=== PATIENT | female | born 1950 | race Caucasian/White ===

== ENCOUNTER 2016-03-15 18:28 | Emergency (ER) | payer MEDICARE, OTHER ==
[2016-03-15 20:10] LABS: #Basophils 0.2 thou/uL (0.0-0.2); #Eosinphils 0.1 thou/uL (0.0-0.7); #Monocytes 0.9 thou/uL (0.11-0.59); %Basophils 1.1 % (0.0-1.0); %Eosinophils 0.5 % (0.0-10.0); %Lymphocytes 6.1 % (21.0-51.0); %Monocytes 5.4 % (0.0-10.0); Hematocrit 38.8 % (36.0-47.0); Mean Platelet Volume 9.6 fL (7.4-10.4); Red Blood Cell (RBC) Count 4.09 mill/uL (4.20-5.40); White Blood Cell (WBC) Count 16.1 thou/uL (4.8-10.8)
[2016-03-15 20:19] LABS: ALT (SGPT) 14 U/L (0-55); AST (SGOT) 17 U/L (5-34); Alkaline Phosphatase 62 U/L (40-150); Anion Gap 14 mmol/L (10-20); BUN (Urea Nitrogen) 38 mg/dL (9.8-20.1); Bilirubin, Total 0.4 mg/dL (0.2-1.2); Calc. Creatinine Clearance 0 mL/min (70-130); Calcium 8.6 mg/dL (7.8-10.44); Carbon Dioxide 25 mmol/L (23-31); Chloride 97 mmol/L (98-107); Estimated GFR-MDRD 18; Globulin 3.3 g/dL (2.4-3.5); Protein, Total 7.1 g/dL (5.8-8.1)
--- NOTE | 2016-03-15 21:26 | RAD ---
SINGLE VIEW ABDOMEN 03/15/16 CLINICAL HISTORY: Constipation. FINDINGS: There is distention of the stool filled colon. There is air within bowel of the pelvis which is nond istended. Upper and left lateral aspect of abdomen not included. IMPRESSION: Distended stool filled colon. 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 There is nondistended air filled bowel of the pelvis. POS: [facility]
--- NOTE | 2016-03-15 21:53 | RAD ---
FRONTAL VIEW CHEST 03/15/16 COMPARISON: 03/13/09 INDICATION: Pain. FINDINGS: The chest is grossly stable to prior exam. There is mild interstitial prominence of the lower lung z ones. The cardiac silhouette is stable in size. IMPRESSION: No focal consolidation. POS: [facility]
--- NOTE | 2016-03-15 21:56 | RAD ---
SINGLE VIEW ABDOMEN 03/15/16 COMPARISON: Earlier same day. CLINICAL HISTORY: Constipation. FINDINGS: Redemonstration of dilated stool filled colon as was described in the radiograph from earlier today. There is presumed partially air filled gastric bubble underlying left hemidiaphragm. Imaged lung ba ses are grossly clear. IMPRESSION: Redemonstration of stool filled dilated colon indicating [place]'s syndrome. Correlate clinically. POS: [facility]
[2016-03-15] MEDS ORDERED: Sodium Chloride 0.9% 1,000 ML ONE (22:26)
--- NOTE | 2016-03-15 23:06 | CT ---
NONCONTRAST ABDOMEN AND PELVIC CT 03/15/16 CLINICAL HISTORY: Constipation. FINDINGS: There is prominent dilatation of the stool filled colon with extensive dilatation spanning the level of the cecum through the mid left descending colon. There is mild to moderate distention of the rem aining left hemicolon and rectosigmoid colon. No evidence of small bowel obstruction. There is impac derik prominent fecal material with surrounding peripherally located submural air density likely repre senting air interposed between wall and stool rather than pneumatosis coli. Due to the noncontrast t echnique, the solid abdominal organs, lymph nodes and vasculature are limited in assessment. There i s scattered vascular disease. No significant consolidation at the lung bases. No disseminated free a ir or portal venous gas. There is a small hiatal hernia. Fat containing hernia of the lower left loco tral pelvic wall noted. Scattered osseous degenerative change. IMPRESSION: Extensive, diffuse dilatation of the stool filled colon as above. Findings favor an Jeff's syndro me. No associated small bowel obstruction. The unopacified small bowel is grossly unremarkable. No free air. No significant ascites or portal venous gas. POS: [facility]
[2016-03-15] MEDS ORDERED: Piperacillin/Tazobactam 3.375 GM VIAL ONE (23:24)
[2016-03-15] MEDS ORDERED: Sodium Chloride 0.9% 100 ML ONE (23:25)
[2016-03-15 23:28] LABS: Lactic Acid - Sepsis 1.1 mmol/L (0.5-2.2)
[2016-03-16] MEDS ORDERED: Sodium Chloride 0.9% 1,000 ML ONE (04:22)
[2016-03-16 05:20] LABS: Blood, Urine Small (Negative); Glucose, Urine (Dipstick) Negative (Negative); Ketone, Urine Trace mg/dL (Negative); Nitrite Negative (Negative); Protein, Urine (Dipstick) Negative (Neg-Trace); Urobilinogen 0.2 mg/dL (0.2-1.0)
[2016-03-16 05:23] LABS: Bilirubin Negative (Negative)
[2016-03-16 05:26] LABS: Squamous Epithelial 21-50 HPF (0-3)
[2016-03-16 05:27] LABS: Bacteria/HPF 1+ HPF (None Seen)
[2016-03-16] MEDS ORDERED: Piperacillin/Tazobactam 2.25 GM in Sodium Chloride 0.9% 100 ML IVPB SCH (06:00)
[2016-03-16] MEDS ORDERED: Sodium Chloride 0.9% 0 ML ONE (06:03)
[2016-03-16 06:20] LABS: #Basophils 0.1 thou/uL (0.0-0.2); #Eosinphils 0.1 thou/uL (0.0-0.7); #Monocytes 0.9 thou/uL (0.11-0.59); %Basophils 0.9 % (0.0-1.0); %Lymphocytes 6.9 % (21.0-51.0); %Monocytes 6.1 % (0.0-10.0); Hematocrit 35.1 % (36.0-47.0); Mean Platelet Volume 9.8 fL (7.4-10.4); Red Blood Cell (RBC) Count 3.76 mill/uL (4.20-5.40); White Blood Cell (WBC) Count 14.1 thou/uL (4.8-10.8)
[2016-03-16 06:34] LABS: ALT (SGPT) 14 U/L (0-55); AST (SGOT) 16 U/L (5-34); Alkaline Phosphatase 54 U/L (40-150); Anion Gap 15 mmol/L (10-20); BUN (Urea Nitrogen) 36 mg/dL (9.8-20.1); Bilirubin, Total 0.4 mg/dL (0.2-1.2); Calc. Creatinine Clearance 0 mL/min (70-130); Calcium 7.7 mg/dL (7.8-10.44); Carbon Dioxide 21 mmol/L (23-31); Chloride 101 mmol/L (98-107); Estimated GFR-MDRD 23; Globulin 2.8 g/dL (2.4-3.5)
--- NOTE | 2016-03-16 12:02 | PICIS ---
[facility] EMERGENCY RECORD TRIAGE (MonMar 15, 2016 18:37 EPIE) TRIAGE NOTES: Pt reports pt was having constipation one week ago. Pt has had medication and 2 enemas with no relief. Last BM was one week ago. (MonMar 15, 2016 18:37 EPIE) PATIENT: NAME: Jesusita Malhotra, AGE: 66, GENDER: female, : Mon1950, TIME OF GREET: MonMar 15, 2016 18:28, PREFERRED LANGUAGE: Malaysian, ETHNICITY: Not or , ECODE BILLING MAP: [facility], SSN: [id number], Zip Code: [address], KG WEIGHT: 66.22, PHONE: , , , PERSON ID: [id number], PCP: Carlos Kessler, /[place]. (MonMar 15, 2016 18:37 EPIE) COMPLAINT: Constipation. (MonMar 15, 2016 18:37 EPIE) ADMISSION: URGENCY: 3 Urgent, ADMISSION SOURCE: Home, TRANSPORT: CAR, BED: TRIAGE. (MonMar 15, 2016 18:37 EPIE) TRIAGE SCREENING: Patient denies suicidal ideation, Patient denies presence of domestic violence. (18:42 EPIE) TREATMENTS IN PROGRESS: Treatments given Prehospital: none. (18:42 EPIE) PROVIDERS: TRIAGE NURSE: Cara Plascencia RN. (MonMar 15, 2016 18:37 EPIE) VITAL SIGNS: BP 132/63, Pulse 93, Resp 20, (Non-Labored), Temp 98.3, (Oral), Pain 8, O2 Sat 95, on Room Air, Time 03/15/2016 18:35. (18:35 EPIE) KNOWN ALLERGIES Latex, Natural Rubber CURRENT MEDICATIONS metFORMIN: TABLET : Strength - 500 mg : ORAL Patient Dose: 500 mg Oral 2 times a day. (18:38 EPIE) Unknown (18:39 EPIE) alendronate: TABLET : Strength - 70 mg : ORAL Patient Dose: 1 tab(s) Oral once a week. (MonMar 16, 2016 04:51 [facility]) Coreg: TABLET : Strength - 12.5 mg : ORAL Patient Dose: 6.25 mg Oral 2 times a day. (MonMar 16, 2016 04:51 [facility]) doxepin: CAPSULE : Strength - 100 mg : ORAL Patient Dose: 1 tab(s) Oral once a day (at bedtime). (MonMar 16, 2016 04:52 [facility]) hydrochlorothiazide: CAPSULE : Strength - 12.5 mg : ORAL Patient Dose: 1 tab(s) Oral once a day (in the morning). (MonMar 16, 2016 04:53 [facility]) levothyroxine: TABLET : Strength - 125 mcg : ORAL &a-1R&a+25V*p+0X*u6919I*c202B*c15G*c2P*p-0X&a-25V&a+1R Name: Jesusita Malhotra : 1950 F66 MedRec: [id number] AcctNum: [id number] Prepared: MonMar 16, 2016 11:42 by Interface Page 1 of 19 pMD [facility] EMERGENCY RECORD Patient Dose: 1 tab(s) Oral once a day (in the morning). (MonMar 16, 2016 04:53 [facility]) lovastatin: TABLET : Strength - 20 mg : ORAL Patient Dose: 1 tab(s) Oral once a day (at bedtime). (MonMar 16, 2016 04:55 [facility]) SMZ-TMP DS: TABLET : Strength - 800 mg-160 mg : ORAL Patient Dose: 1 tab(s) Oral 2 times a day.filled 03/01/16, qty 28 tabs. (MonMar 16, 2016 04:56 [facility]) Fish Oil-Vit D3: CAPSULE : Strength - 300 mg-1,000 mg-1,000 unit : ORAL Patient Dose: 1 cap(s) Oral once a day.1200 mg Fish oil conc. w/2000 iu fo Vitamin D3. (MonMar 16, 2016 04:58 [facility]) Vitamin D3: TABLET : Strength - 5,000 unit : ORAL Patient Dose: 1 tab(s) Oral once a day. (MonMar 16, 2016 04:59 [facility]) omeprazole: CAPSULE,DELAYED RELEASE (ENTERIC COATED) : Strength - 40 mg : ORAL Patient Dose: 1 tab(s) Oral once a day. (MonMar 16, 2016 05:03 [facility]) VITAL SIGNS VITAL SIGNS: BP: 132/63, Pulse: 93, Resp: 20 (Non-Labored), Temp: 98.3 (Oral), Pain: 8, O2 sat: 95 on Room Air, Time: 03/15/2016 18:35. (18:35 EPIE) BP: 140/56, Pulse: 85, Resp: 18, O2 sat: 95 on Room Air, Time: 03/15/2016 23:15. (23:15 [facility]) BP: 134/39, Pulse: 87, Resp: 20, Pain: 8, O2 sat: 96 on Room Air, Time: 03/15/2016 19:50. (19:50 [facility]) BP: 137/56, Pulse: 83, Resp: 20, O2 sat: 95 on Room Air, Time: 03/15/2016 20:15. (20:15 [facility]) BP: 125/68, Pulse: 84, Resp: 20, Pain: 8, O2 sat: 97 on Room Air, Time: 03/15/2016 21:45. (21:45 [facility]) BP: 148/56, Pulse: 84, Resp: 20, O2 sat: 97 on Room Air, Time: 03/15/2016 22:15. (22:15 [facility]) BP: 119/38, Pulse: 83, Resp: 18, O2 sat: 100 on 4L Oxygen, Time: 03/15/2016 22:50. (22:50 [facility]) BP: 109/53, Pulse: 89, Resp: 18, O2 sat: 94 on Room Air, Time: 03/15/2016 23:30. (23:30 [facility]) BP: 131/60, Pulse: 87, Resp: 18, Temp: 98.6 (Oral), O2 sat: 94 on Room Air, Time: 03/16/2016 00:30. (MonMar 16, 2016 00:30 [facility]) Pain: 8, Time: 03/15/2016 23:20. (23:20 [facility]) BP: 132/60, Pulse: 87, Resp: 18, O2 sat: 94 on Room Air, Time: 03/16/2016 01:00. (MonMar 16, 2016 01:00 [facility]) BP: 142/71, Pulse: 88, Resp: 16, O2 sat: 95 on Room Air, Time: 03/16/2016 02:00. (MonMar 16, 2016 02:00 [facility]) BP: 141/53, Pulse: 93, Resp: 18, O2 sat: 93 on Room Air, Time: 03/16/2016 06:00. (MonMar 16, 2016 06:00 [facility]) &a-1R&a+25V*p+0X*r0713T*c202B*c15G*c2P*p-0X&a-25V&a+1R Name: Jesusita Malhotra : 1950 F66 MedRec: [id number] AcctNum: [id number] Prepared: MonMar 16, 2016 11:42 by Interface Page 2 of 19 pMD [facility] EMERGENCY RECORD BP: 130/71, Pulse: 86, Resp: 16, O2 sat: 94 on Room Air, Time: 03/16/2016 04:00. (MonMar 16, 2016 04:00 [facility]) BP: 125/69, Pulse: 94, Resp: 18 (Non-Labored), O2 sat: 93 on Room Air, Time: 03/16/2016 08:00. (MonMar 16, 2016 08:00 EPIE) Pulse: 98, Resp: 20 (Non-Labored), Temp: 98.4 (Oral), Pain: 8, O2 sat: 94 on Room Air, Time: 03/16/2016 10:02. (MonMar 16, 2016 10:02 EPIE) BP: 132/58, Time: 03/16/2016 10:30. (MonMar 16, 2016 10:30 EPIE) NURSING ASSESSMENT: ABDOMEN (18:44 EPIE) CONSTITUTIONAL: Patient arrives ambulatory, Gait steady, History obtained from patient, Patient appears comfortable, Patient cooperative, Patient alert, Oriented to person, place and time, Skin warm, Skin dry, Skin normal in color, Mucous membranes pink, Mucous membranes moist, Patient is well-groomed, Pt reports pt was having constipation one week ago. Pt has had medication and 2 enemas with no relief. Last BM was one week ago. PAIN: reports stretching feeling to diffuse abd, Onset of pain 03/08/2016, on a scale 0-10 patient rates pain as 8, Pain exacerbated by nothing, Nothing has been tried to alleviate the pain. ABDOMEN: Abdomen assessment findings include abdomen symmetrical, Abdomen, full, tender, no associated nausea, no associated vomiting, no associated diarrhea, Associated with constipation, Date of last bowel movement: 03/08/2016. LMP: Last menstrual period not applicable due to menopause. GENITOURINARY FEMALE: no associated urinary complaints. NURSING ASSESSMENT: ED HOLDING RECORD (MonMar 16, 2016 03:00 [facility]) ADMISSION TIME: Patient was admitted at 03/15/2016 22:35, Notes: TRANSFER SET UP AND READY TO GO. TRANSFER CENTER THEN CALLED BACK ASKING IF WE COULD HOLD PT UNTIL MORNING DUE TO OVERFLOW IN ED AT [facility]. NEURO/SENSORY: Neuro/Sensory assessment findings include patient alert and oriented to person, place and time, Pupils equally round and reactive to light, Speech normal, Skin warm, Skin dry, Skin normal in color, Capillary refill less than 2 seconds, Nail beds pink, no edema. RESPIRATORY/AIRWAY CLEARANCE: Respiratory/airway clearance assessment findings include chest expansion symmetrical, Respiratory effort easy, Respirations regular, Conversing normally, no signs of distress, Breath sounds clear. FLUID/NUTRITION/ELIMINATION: Fluid/Nutrition/Elimination assessment findings include mucous membranes pink, Mucous membranes moist, Abdomen, tender, Notes: C/O CRAMPING TO RLQ. PSYCH/SOCIAL: Psych/social assessment findings include patient calm, Answers questions readily, Patient speaks Malaysian. PAIN: cramping pain, RLQ, constant, on a scale 0-10 patient rates pain as 8. &a-1R&a+25V*p+0X*q8038P*c202B*c15G*c2P*p-0X&a-25V&a+1R Name: Jesusita Malhotra : 1950 F66 MedRec: [id number] AcctNum: [id number] Prepared: MonMar 16, 2016 11:42 by Interface Page 3 of 19 pMD [facility] EMERGENCY RECORD SAFETY SCREEN: Fall risk assessment findings include history of falls (5), Total score: 5, Patient at risk for falls. IV: IV site to the right antecubital inspected, no redness noted, no swelling noted, no drainage noted. NURSING ASSESSMENT: SKIN (22:18 [facility]) SKIN: Skin assessment findings include skin warm, Skin dry, Skin normal in color, Inspection findings include: No pressure ulcer to the shoulder, Inspection findings include no pressure ulcer to the elbow, Inspection findings include no pressure ulcers to the hip, Inspection findings include no pressure ulcer to the sacrum, Inspection findings include no pressure ulcer to the heel, Inspection findings include no pressure ulcer, Inspection findings include no pressure ulcer, Notes: MULTIPLE SCABS TO BILATERAL ARMS, CHEST, AND NECK FROM NEURODERMATITIS. SCRATCH TO MID LEFT BACK FROM PREVIOUS FALL. NURSING PROCEDURE: BEDSIDE SIRS TESTING (22:13 [facility]) SCORES: Heart Rate 55-109 (0), Temp range 96.8-101.1 (0), respiratory rate 12-24 (0), Latest WBC 15-19.9 (1), Mental Status altered: no (0), Total SIRS Score 1. NURSING PROCEDURE: COMMUNICATIONS COMMUNICATIONS: Admissions department, notified at 2216, Person contacted Kaity, in transfer center, Transfer centered contacted per TERRY to start transfer process to [facility] Dx: Renal Failure, Constipation, Rectal Dilation Accepting MD: Wojciech [facility] Admin: Vanessa. (22:15 [facility]) Admissions department, notified at 2235, CONTACTED BY KAITY (@ TRANSFER CENTER). VANESSA GARCÍA ([facility] ADMIN) REQUESTING WE HOLD PT IN ED UNTIL MORNING DUE TO 11 HOLDS ALREADY AT [facility] ER. PT TO BE TRANSFERED IN THE AM. (22:35 [facility]) NURSING PROCEDURE: INTAKE AND OUTPUT INTAKE AND OUTPUT: IV intake(ml): 1100, Total Intake (ml): 1100ml, Urine output(ml): 15, Total Output (ml): 15ml, Grand Total: Intake is greater than output by 1085mls. (MonMar 16, 2016 05:18 [facility]) IV intake(ml): 200, Total Intake (ml): 200ml, Urine output(ml): 200, Total Output (ml): 200ml, Grand Total: Output is equal to intake. (MonMar 16, 2016 09:47 EPIE) NURSING PROCEDURE: IV PATIENT IDENITIFIER: Patient actively involved in identification process, Patient's identity verified by patient stating name, Patient's identity verified by patient stating date, Patient's identity verified by hospital ID bracelet. (19:45 [facility]) &a-1R&a+25V*p+0X*o7838A*c202B*c15G*c2P*p-0X&a-25V&a+1R Name: Jesusita Malhotra : 1950 F66 MedRec: [id number] AcctNum: [id number] Prepared: MonMar 16, 2016 11:42 by Interface Page 4 of 19 pMD [facility] EMERGENCY RECORD IV SITE 1: IV established, to the right antecubital, using a 20 gauge catheter, in one attempt, IV site prepped with Chloroprep, Saline lock established, Flushed with normal saline (mls): 10mLs, Labs drawn at time of placement, labeled in the presence of the patient and sent to lab, Notes: IV site C/D/I. no pain, redness, or swelling. IV start kit/extension tubing used. (19:45 [facility]) NOTES: Notes: 1ST SET OF BLOOD CULTURES DRAWN FROM IV SITE. STOPPED IV FLUIDS. 10ML BLOOD WASTED. 20ML PULLED FOR CULTURES. FLUIDS RESUMED. (22:55 [facility]) Notes: CBC & CMP DRAWN FROM IV SITE. STOPPED IV FLUIDS. 10ML BLOOD WASTED. 6ML PULLED FOR TESTING. FLUIDS RESUMED. (MonMar 16, 2016 06:00 [facility]) SAFETY: Side rails up, Cart/Stretcher in lowest position, Call light within reach, Hospital ID band on. (19:45 [facility]) NURSING PROCEDURE: LAB DRAW (23:05 [facility]) PATIENT IDENTIFIER: Patient actively involved in identification process, Patient's identity verified by patient stating name, Patient's identity verified by patient stating date, Patient's identity verified by hospital ID kati. LAB DRAW: Lab draw indicated for obtaining specimens for evaluation, Lab draw indicated for 2nd set of Blood Cultures, Initial lab draw performed, by venipuncture, from right hand, in one attempt, Blood cultures labeled in the presence of the patient and sent to lab. FOLLOW-UP: After procedure, dressing applied to site, After procedure, no swelling at site, After procedure, no active bleeding from site. NURSING PROCEDURE: NURSE NOTES NURSES NOTES: Notes: PT ASKED FOR DRINK OF WATER. INFORMED PT SHE WAS TO HAVE NOTHING BY MOUTH UNTIL ALL RESULTS WERE RECEIVED AND CLEARED BY MD. PT VERBALIZES UNDERSTANDING. (19:50 [facility]) Notes: PT C/O OF ABDOMINAL CRAMPING AND REQUESTING TO GO TO RESTROOM. PT ASSISTED OUT OF BED TO BATHROOM. (22:10 [facility]) Notes: PT RECONNECTED TO MONITOR AND IV FLUIDS. PT STATES SHE HAD A SMALL BOWEL MOVEMENT WHILE IN THE RESTROOM BUT "NOT A GOOD ONE." PT REQUESTING WATER AT THIS TIME. (22:20 [facility]) Notes: DISCUSSED NPO STATUS AND PAIN MANAGEMENT WITH MD. STATES HAVING PATIENT WALK AROUND SHOULD HELP RELIEVE THE PAIN AND THAT SHE CAN HAVE ANYTHING SHE WANTS BY MOUTH. GLASS OF ICE WATER GIVEN TO PATIENT. OFFERED TO WALK PT AROUND TO HELP WITH PAIN, PT STATED "THATS OKAY, I'M TIRED AND JUST WANT TO SLEEP". OFFERED TO GET PATIENT A LARGER, MORE COMFORTABLE BED FROM THE ACUTE FLOOR, PT STATES "THIS ONE IS FINE." PT APPEARS COMFORTABLE AND IN NAD. NO QUESTIONS OR CONCERNS AT THIS TIME. (22:30 [facility]) Notes: PT SOUND ASLEEP IN BED. IV ANTIBIOTIC INFUSION COMPLETED AND DISCONNECTED FROM PT. MAINTENANCE IV FLUIDS CONTINUE TO INFUSE AT 100ML/HR. RR EVEN AND UNLABORED. SKIN WARM AND DRY TO TOUCH. VSS. NAD. (MonMar 16, 2016 00:00 [facility]) &a-1R&a+25V*p+0X*m0124G*c202B*c15G*c2P*p-0X&a-25V&a+1R Name: Jseusita Malhotra : 1950 F66 MedRec: [id number] AcctNum: [id number] Prepared: MonMar 16, 2016 11:42 by Interface Page 5 of 19 pMD [facility] EMERGENCY RECORD Notes: PATIENT APPEARS IF SHE IS NOT COMFORTABLE ON ER BED. OFFERED LARGER BED TO PT FOR A SECOND TIME. PT HESITANT, STATES "THAT WOULD BE OK, BUT YOU DON'T HAVE TO." OBTAINED BED FROM ACUTE FLOOR AND BROUGHT TO PTS ROOM. PT STANDS WITH STEADY GAIT WHILE BEDS ARE SWITCHED. OFFERED TO TAKE PT TO RESTROOM BUT PT EXPRESSED SHE DID NOT NEED TO GO AT THIS TIME. PT INSTRUCTED ON HOW TO USE CONTROLS ON HOSPITAL BED. ALSO INFORMED PT SHE MAY HAVE ANOTHER BREATHING TREATMENT ANYTIME AFTER 3AM IF NEEDED AND THAT HER SECOND DOSE OF ANTIBIOTICS WOULD BE AT 0600. PT VERBALIZED UNDERSTANDING. CALL SOUZA HOOKED TO SIDE RAIL. PT REPORTS FEELING MUCH MORE COMFORTABLE. REPORTS NO CHANGE IN RLQ CRAMPING. VSS. NAD. LIGHTS TURNED OFF AND EXTRA PILLOW GIVEN FOR COMFORT. (MonMar 16, 2016 00:40 [facility]) Notes: PT ASLEEP IN BED. Q2H VS PER MD ORDER. NAD. RR EVEN AND UNLABORED. (MonMar 16, 2016 01:30 [facility]) Notes: PT ASLEEP IN NAD. RR EVEN AND UNLABORED. MAINTENANCE FLUIDS INFUSING AT 100ML/HR. VSS. (MonMar 16, 2016 02:48 [facility]) Notes: PT FRIEND AT BEDSIDE. WOKE UP WHEN FRIEND ENTERED THE ROOM. PT IN NAD. RR EVEN AND UNLABORED. PULSES EQUAL BILATERALLY. SKIN WARM AND DRY TO TOUCH. NO QUESTIONS OR CONCERNS AT THIS TIME. IV FLUIDS INFUSING AT 100ML/HR. (MonMar 16, 2016 04:45 [facility]) Notes: PT AMBULATED TO BATHROOM WITH STEADY GAIT. URINE SAMPLE PROVIDED. PT ONLY ABLE TO PRODUCE A SMALL AMOUNT OF URINE (APPROX 15ML) WHICH WAS CLOUDY IN APPEARANCE. (MonMar 16, 2016 05:05 [facility]) Notes: PT UPDATED THAT WE WILL BE CONTACTING TRANSFER CENTER AT 0800 FOR UPDATE ON TRANSFER STATUS. WILL ALSO BE CONTACTING DR SUTTON TO MAKE HIM AWARE OF HER ADMISSION. PT VERBALIZED UNDERSTANDING. (MonMar 16, 2016 06:00 [facility]) Shift change report given, to FRITZ VILLA, Provided opportunity to answer questions. (MonMar 16, 2016 07:00 [facility]) Notes: Transfer center contacted at this time. The state that there is 19 holds in the ED at [facility]. States that she doesn't have a time for possible admission. Pt resting with RR even and unlabored. NAD. IV fluids infusing and family at bedside. (MonMar 16, 2016 07:00 EPIE) Notes: Pt changed into new brief at this time. Pt has small amount of stool in the brief and on her skin. Skin was cleaned with foaming cleanser. No pressure ulcers noted on sacrum. Pt has blanchable redness. Pt was out of breath from rolling on her side. Pt then had RR even and unlabored. NAD. Awaiting transfer to [facility] in [place]. (MonMar 16, 2016 07:13 EPIE) Notes: Patient resting with RR even and unlabored. No new complaints at this time. Lights currently off. NAD. Pt appears to be sleeping with eyes closed. (MonMar 16, 2016 08:27 EPIE) Notes: Patient resting with RR even and unlabored. No new complaints at this time. Eyes closed and pt appears to be sleeping. NAD. (MonMar 16, 2016 09:25 EPIE) Notes: Pt reported needing to void. Pt ambulated to bathroom with AUTOMOTIVE GLAZIER assistance. Pt voided 200ml of yellow urine. Upon returning to bed, pt stated that she felt SOB. Duoneb given for comfort. (Mon &a-1R&a+25V*p+0X*i2959T*c202B*c15G*c2P*p-0X&a-25V&a+1R Name: Jesusita Malhotra : 1950 F66 MedRec: [id number] AcctNum: [id number] Prepared: MonMar 16, 2016 11:42 by Interface Page 6 of 19 pMD [facility] EMERGENCY RECORD Mar 16, 2016 09:41 EPIE) Notes: Pt resting in bed with RR even and unlabored NAD. Pt to go to room 138B at [facility]. Awaiting EMS at this time. (MonMar 16, 2016 10:16 EPIE) NURSING PROCEDURE: RESPIRATORY INTERVENTIONS RESPIRATORY INTERVENTIONS: Respiratory interventions indicated for wheezing, Pre-intervention breath sounds with wheezing, scattered, Pre-intervention oxygen saturation 94%, by adult/pediatric oxisensor, single pulse oximetry reading, Patient given ALBUTEROL with ATROVENT, Single dose nebulizer, Dose: 3mL. (22:47 [facility]) FOLLOW-UP: After procedure, oxygen saturation 95%, on room air, After procedure, breath sounds clear, Notes: PT REPORTS IMPROVEMENT IN RESPIRATORY EFFORT. (23:00 [facility]) NURSING PROCEDURE: TRANSFER (MonMar 16, 2016 11:22 EPIE) TRANSFER: Reason for transfer need for specialized care, Diagnosis: Obstipation, renal failure, Accepting institution: [facility], Accepting physician: Shavonne, Referring physician: Mamie, Transported by non-urgent ambulance, accompanied by emergency medical services personnel, Report called to receiving facility, Cynthia RN, Provided opportunity to answer questions, Bed assigned 138B, Summary of Care printed, Copy of patient record prepared for receiving facility, Patient consent for transfer signed, Family member contacted. BELONGINGS: Belongings and valuables with patient upon arrival to the Emergency Department include:, Belongings and valuables with patient at time of discharge include:, Belongings remain with patient, Valuables remain with patient. NURSING PROCEDURE: TRANSPORT TO TESTS PATIENT IDENTIFIER: Patient actively involved in identification process, Patient's identity verified by patient stating name, Patient's identity verified by patient stating date. (20:38 [facility]) TRANSPORT TO TESTS: Transport indicated to facilitate diagnosis, Patient transported to x-ray, via cart, Accompanied by x-ray agriculture technician. (19:05 [facility]) Transport indicated to facilitate diagnosis, Transport indicated for R/O OBTRUCTION, Patient transported to x-ray, via cart, Accompanied by x-ray agriculture technician. (19:30 [facility]) Transport indicated to facilitate diagnosis, Patient transported to CT scan, via cart, Accompanied by x-ray agriculture technician. (20:38 [facility]) FOLLOW-UP: After procedure, patient returned to emergency department. (19:13 [facility]) After procedure, patient returned to emergency department. (19:42 [facility]) After procedure, patient returned to emergency department. (21:33 [facility]) NOTES: Notes: PT BACK TO CT FOR UPRIGHT VIEW AND CHEST TO HELP R/O OBSTRUCTION. (19:30 [facility]) &a-1R&a+25V*p+0X*b6753U*c202B*c15G*c2P*p-0X&a-25V&a+1R Name: Jesusita Malhotra : 1950 F66 MedRec: [id number] AcctNum: [id number] Prepared: MonMar 16, 2016 11:42 by Interface Page 7 of 19 D [facility] EMERGENCY RECORD SAFETY: Side rails up, Cart/Stretcher in lowest position, Call light within reach, Hospital ID band on. (20:38 [facility]) NURSING PROCEDURE: URINE COLLECTION (MonMar 16, 2016 05:10 [facility]) URINE COLLECTION FEMALE: Urine collected by void, output amount (mL) 15, urine tea in color, and cloudy. ORDER DETAILS Order Name: CBC with Differential, Status: Active, Time: 19:38 03/15/2016, User: CRISPIN, - Ordered for: MD Chiu Marcus, - Entered by: MD Chiu Marcus - Tue Mar 15, 2016 19:38, - Quantity: 1, Order Name: CBC with Differential, Status: Canceled, Time: 02:20 03/16/2016, User: System, - Ordered for: MD Chiu Marcus, - Entered by: FRITZ Velez, [facility] Mar 16, 2016 02:11, - Quantity: 1, Order Name: CBC with Differential, Status: Active, Time: 06:00 03/16/2016, User: SKIP, - Ordered for: MD Chiu Marcus, - Entered by: FRITZ Velez, [facility] Mar 16, 2016 06:00, - Quantity: 1, Order Name: Comprehensive Metabolic Panel, Status: Active, Time: 19:38 03/15/2016, User: CRISPIN, - Ordered for: MD Chiu Marcus, - Entered by: MD Chiu Marcus - Tue Mar 15, 2016 19:38, - Quantity: 1, Order Name: Comprehensive Metabolic Panel, Status: Canceled, Time: 02:20 03/16/2016, User: System, - Ordered for: MD Chiu Marcus, - Entered by: FRITZ Velez, [facility] Mar 16, 2016 02:11, - Quantity: 1, Order Name: Comprehensive Metabolic Panel, Status: Active, Time: 06:00 03/16/2016, User: SKIP, - Ordered for: MD Chiu Marcus, - Entered by: FRITZ Velez, [facility] Mar 16, 2016 06:00, - Quantity: 1, Order Name: CT Abdomen Pelvis W Con, Status: Canceled, Time: 22:06 03/15/2016, User: System, - Ordered for: MD Chiu Marcus, - Entered by: MD Chiu Marcus - Tue Mar 15, 2016 20:25, - Quantity: 1, Order Name: Culture, Blood, Status: Active, Time: 22:55 03/15/2016, User: CRISPIN, - Ordered for: MD Chiu Marcus, - Entered by: MD Chiu Marcus - Tue Mar 15, 2016 22:55, - Quantity: 1, Order Name: ERRT * Smal Vol Neb Initial Trmt, Status: Active, Time: &a-1R&a+25V*p+0X*y7590T*c202B*c15G*c2P*p-0X&a-25V&a+1R Name: Jesusita Malhotra : 1950 F66 MedRec: [id number] AcctNum: [id number] Prepared: MonMar 16, 2016 11:42 by Interface Page 8 of 19 pMD [facility] EMERGENCY RECORD 22:39 03/15/2016, User: SKIP, - Ordered for: MD Chiu Marcus, - Entered by: FRITZ Velez, Sade Butler Mar 15, 2016 22:39, - Quantity: 1, Order Name: ERRT Small Vol Neb Sub Trmt, Status: Active, Time: 09:38 03/16/2016, User: OTNA, - Ordered for: MD Weiss Bryan, - Entered by: FRITZ Plascencia Emily - MonMar 16, 2016 09:38, - Quantity: 1, Order Name: Lactic Acid with repeat, Status: Active, Time: 22:54 03/15/2016, User: CRISPIN, - Ordered for: MD Chiu Marcus, - Entered by: MD Chiu Marcus - Tue Mar 15, 2016 22:54, - Quantity: 1, Order Name: Miscellaneous Nurse Order(s), Status: Done, Time: 09:38 03/16/2016, User: TONA, - Ordered for: MD Chiu Marcus, - Entered by: MD Chiu Marcus - [facility] Mar 16, 2016 01:30, - Quantity: 1, Order Name: Occult Blood, Stool DIAGNOSTIC(Guiac), Status: Active, Time: 19:33 03/15/2016, User: SKIP, - Ordered for: MD Chiu Marcus, - Entered by: FRITZ Velez, Sade Butler Mar 15, 2016 19:33, - Quantity: 1, Order Name: SALINE LOCK, Status: Done, Time: 19:57 03/15/2016, User: SKIP, - Ordered for: MD Chiu Marcus, - Entered by: MD Chiu Marcus - Tue Mar 15, 2016 19:38, - Quantity: 1, Order Name: Urinalysis with Microscopic, Status: Active, Time: 22:56 03/15/2016, User: CRISPIN, - Ordered for: MD Chiu Marcus, - Entered by: MD Chiu Marcus - Tue Mar 15, 2016 22:56, - Quantity: 1, Order Name: XR Abdomen 1 View, Status: Active, Time: 18:53 03/15/2016, User: CRISPIN, - Ordered for: MD Chiu Marcus, - Entered by: MD Chiu Marcus - Tue Mar 15, 2016 18:53, - Quantity: 1, Order Name: XR Abdomen 1 View, Status: Active, Time: 19:27 03/15/2016, User: SKIP, - Ordered for: MD Chiu Marcus, - Entered by: FRITZ Velez, Sade Butler Mar 15, 2016 19:27, - Quantity: 1, Order Name: XR Chest 1 View, Status: Active, Time: 19:27 03/15/2016, User: SKIP, - Ordered for: MD Chiu Marcus, - Entered by: FRITZ Velez, Sade Butler Mar 15, 2016 19:27, - Quantity: 1. &a-1R&a+25V*p+0X*m2468H*c202B*c15G*c2P*p-0X&a-25V&a+1R Name: Doron Malhotradean Tanner : 1950 F66 MedRec: [id number] AcctNum: [id number] Prepared: MonMar 16, 2016 11:42 by Interface Page 9 of 19 pMD [facility] EMERGENCY RECORD MEDICATION ADMINISTRATION SUMMARY Drug Name: *DuoNeb, Dose Ordered: 3 mL, Route: Nebulize, Status: Given, Time: 09:38 03/16/2016, Drug Name: *Zosyn, Dose Ordered: 2.25 g, Route: IV Piggy Back, Status: Given, Time: 06:25 03/16/2016, Drug Name: *sodium chloride 0.9 % intravenous, Dose Ordered: 100 mL/hr, Route: IV Fluid Infusion, Status: Given, Time: 04:26 03/16/2016, Drug Name: *Zosyn, Dose Ordered: 3.375 g, Route: IV Piggy Back, Status: Given, Time: 23:33 03/15/2016, Drug Name: *DuoNeb, Dose Ordered: 3 mL, Route: Nebulize, Status: Given, Time: 22:47 03/15/2016, Drug Name: sodium chloride 0.9 % intravenous, Dose Ordered: 100 mL/hr, Route: IV Fluid Infusion, Status: Given, Time: 22:31 03/15/2016, Drug Name: *sodium chloride 0.9 % intravenous, Dose Ordered: 500 mL, Route: IV Fluid Infusion, Status: Given, Time: 22:30 03/15/2016, *Additional information available in notes, Detailed record available in Medication Service section. MEDICATION SERVICE DuoNeb: Order: DuoNeb (ipratropium bromide/albuterol sulfate) - Dose: 3 mL : Nebulize Schedule: Now Repeat: Q4H PRN Notes: Read back and verified, Verbal Order Ordered by: Jourdan Chiu MD Entered by: Sade Velez RN MonMar 15, 2016 22:41 Documented as given by: Sade Velez RN MonMar 15, 2016 22:47 Patient, Medication, Dose, Route and Time verified prior to administration. Amount given: 3mL, Site: Medication administered via Hand-held nebulizer, With oxygen, Correct patient, time, route, dose and medication confirmed prior to administration, Patient advised of actions and side-effects prior to administration, Allergies confirmed and medications reviewed prior to administration, Co-signed by: Jourdan hCiu MD MonMar 15, 2016 22:57. : Follow Up : No signs or symptoms of allergic reaction noted, Breath sounds improved. (23:00 [facility]) DuoNeb: Order: DuoNeb (ipratropium bromide/albuterol sulfate) - Dose: 3 mL : Nebulize Schedule: Now Repeat: Q4H PRN Notes: Read back and verified, Verbal Order Ordered by: Nick Weiss MD Entered by: Cara Plascencia RN MonMar 16, 2016 09:35 Documented as given by: Cara Plascencia RN MonMar 16, 2016 09:38 Patient, Medication, Dose, Route and Time verified prior to administration. Amount given: 3ml, Site: Medication administered via Hand-held nebulizer, With oxygen, Correct patient, time, route, dose and &a-1R&a+25V*p+0X*q8276E*c202B*c15G*c2P*p-0X&a-25V&a+1R Name: Jesusita Malhotra : 1950 F66 MedRec: [id number] AcctNum: [id number] Prepared: MonMar 16, 2016 11:42 by Interface Page 10 of 19 pMD [facility] EMERGENCY RECORD medication confirmed prior to administration, Patient advised of actions and side-effects prior to administration, Allergies confirmed and medications reviewed prior to administration. sodium chloride 0.9 % intravenous: Order: sodium chloride 0.9 % intravenous (0.9 % sodium chloride) - Dose: 500 mL : IV Fluid Infusion Notes: bolus Ordered by: Jourdan Chiu MD Entered by: Jourdan Chiu MD MonMar 15, 2016 22:24 Documented as given by: Sade Velez RN MonMar 15, 2016 22:30 Patient, Medication, Dose, Route and Time verified prior to administration. IV SITE #1 IV fluids established for hydration, IV SITE #1 into right antecubital, IV SITE #1 1st bag hung, amount 1 Liter hung, IV SITE #1 bolus of 500 ml established, IV SITE #1 Rate of bolus, 1000 ml/hr, IV SITE #1 After bolus completed rate changed to 100 ml/hr, via primary tubing, via pump tubing, IV SITE #1 on IV pump, Awake and alert- acceptable, Catheter placement confirmed via flush prior to administration, IV site without signs or symptoms of infiltration during medication administration, No swelling during administration, No drainage during administration, IV flushed after administration, Correct patient, time, route, dose and medication confirmed prior to administration, Patient advised of actions and side-effects prior to administration, Allergies confirmed and medications reviewed prior to administration. : Follow Up : No signs or symptoms of allergic reaction noted, _IV SITE #1:_, IV fluid infusion discontinued, on MonMar 15, 2016 23:00, 30 minutes, ., Total amount infused: 500mL. (23:00 [facility]) sodium chloride 0.9 % intravenous: Order: sodium chloride 0.9 % intravenous (0.9 % sodium chloride) - Dose: 100 mL/hr : IV Fluid Infusion Ordered by: Jourdan Chiu MD Entered by: Jourdan Chiu MD MonMar 15, 2016 22:24 Documented as given by: Sade Velez RN MonMar 15, 2016 22:31 Patient, Medication, Dose, Route and Time verified prior to administration. 1L HANGING. 500ML BOLUS FOLLOWED BY 100ML/HR. : Follow Up : No signs or symptoms of allergic reaction noted, No swelling at administration site, No drainage at administration site, No bleeding at site, No bruising noted at site, _IV SITE #1:_, IV fluid infusion discontinued, on MonMar 16, 2016 04:25, Total fluid hydration time IV site 1 5 hours, 55 minutes, ., Total amount infused: 1000 ml, Advised not to ambulate without assistance, Patient in position of comfort, Side rails up, Cart in lowest position, VOV received to continue IV fluids at 100 ml/hr per Dr. Apple STEWART. (MonMar 16, 2016 04:25 [facility]) sodium chloride 0.9 % intravenous: Order: sodium chloride 0.9 % intravenous (0.9 % sodium chloride) - Dose: 100 mL/hr : IV Fluid Infusion &a-1R&a+25V*p+0X*r6219A*c202B*c15G*c2P*p-0X&a-25V&a+1R Name: Jesusita Malhotra : 1950 F66 MedRec: [id number] AcctNum: [id number] Prepared: MonMar 16, 2016 11:42 by Interface Page 11 of 19 D [facility] EMERGENCY RECORD Schedule: Now Notes: Read back and verified, Verbal Order Ordered by: Jourdan Chiu MD Entered by: Loida Cordon RN MonMar 16, 2016 04:26 , Acknowledged by: Loida Cordon RN MonMar 16, 2016 04:26 Documented as given by: Loida Cordon RN MonMar 16, 2016 04:26 Patient, Medication, Dose, Route and Time verified prior to administration. Amount given: 1000 ml, IV SITE #1 IV fluids established for hydration, IV SITE #1 into right antecubital, IV SITE #1 2nd bag hung, amount 1 Liter hung, IV SITE #1 Rate of infusion (non-bolus) Infusing at 100 ml/hr, via primary tubing, via pump tubing, IV SITE #1 on IV pump, Catheter placement confirmed via flush prior to administration, IV site without signs or symptoms of infiltration during medication administration, No swelling during administration, No drainage during administration, IV flushed after administration, Correct patient, time, route, dose and medication confirmed prior to administration, Patient advised of actions and side-effects prior to administration, Allergies confirmed and medications reviewed prior to administration, Patient in position of comfort, Side rails up, Cart in lowest position. : Follow Up : _IV SITE #1:_, Titrating to patient response, Dose increased, Medication infusion changed to 125mL/hr, PER MD ORDER. (MonMar 16, 2016 06:55 [facility]) : Follow Up : Response assessment performed, No signs or symptoms of allergic reaction noted, _IV SITE #1:_, IV fluid infusion continued upon transfer from emergency department, on MonMar 16, 2016 11:22, Total fluid hydration time IV site 1 6 hours, ., Total amount infused: 675. (MonMar 16, 2016 11:22 EPIE) Zosyn: Order: Zosyn (piperacillin sodium/tazobactam sodium) - Dose: 3.375 g : IV Piggy Back Notes: now, then 2.25g IVPB q 6 hours Ordered by: Jourdan Chiu MD Entered by: Jourdan Chiu MD [facility] Mar 15, 2016 23:09 Documented as given by: Sade Velez RN [facility] Mar 15, 2016 23:33 Patient, Medication, Dose, Route and Time verified prior to administration. Amount given: 3.375g, IV SITE #1 IVPB or drip, initial infusion, IVPB mixed in: 100ml, Fluid: 0.9NS, via primary tubing, via pump tubing, at 200 ml/hr, Awake and alert- acceptable, Catheter placement confirmed via flush prior to administration, IV site without signs or symptoms of infiltration during medication administration, No swelling during administration, No drainage during administration, IV flushed after administration, Correct patient, time, route, dose and medication confirmed prior to administration, Patient advised of actions and side-effects prior to administration, Allergies confirmed and medications reviewed prior to administration. : Follow Up : No signs or symptoms of allergic reaction noted, _IV SITE #1:_, Medication infusion discontinued, on MonMar 16, 2016 00:03, 30 minutes, ., Total amount infused: 100mL. (Mon &a-1R&a+25V*p+0X*x3807P*c202B*c15G*c2P*p-0X&a-25V&a+1R Name: Jesusita Malhotra : 1950 F66 MedRec: [id number] AcctNum: [id number] Prepared: MonMar 16, 2016 11:42 by Interface Page 12 of 19 pMD [facility] EMERGENCY RECORD 2016 00:03 [facility]) Zosyn: Order: Zosyn (piperacillin sodium/tazobactam sodium) - Dose: 2.25 g : IV Piggy Back Schedule: Now Repeat: q6h Notes: Read back and verified, Written Order Ordered by: Jourdan Chiu MD Entered by: Sade Velez RN MonMar 16, 2016 05:51 , Acknowledged by: Sade Velez RN MonMar 16, 2016 06:01 Documented as given by: Sade Velez RN MonMar 16, 2016 06:25 Patient, Medication, Dose, Route and Time verified prior to administration. Amount given: 2.25g, IV SITE #1 IVPB or drip, subsequent infusion, IVPB mixed in: 100ml, Fluid: 0.9NS, via primary tubing, via pump tubing, on an IV pump, Awake and alert- acceptable, Catheter placement confirmed via flush prior to administration, IV site without signs or symptoms of infiltration during medication administration, No swelling during administration, No drainage during administration, IV flushed after administration, Correct patient, time, route, dose and medication confirmed prior to administration, Patient advised of actions and side-effects prior to administration, Allergies confirmed and medications reviewed prior to administration. : Follow Up : No signs or symptoms of allergic reaction noted, _IV SITE #1:_, Medication infusion discontinued, on MonMar 16, 2016 06:55, 30 minutes, ., Total amount infused: 100mL. (MonMar 16, 2016 06:55 [facility]) HPI NAUSEA/VOMITING/DIARRHEA (21:27 MPUR) CHIEF COMPLAINT: Patient presents for evaluation of nausea, Patient presents for evaluation of vomiting, Patient presents for evaluation of constipation. HISTORIAN: History provided by patient, one week hx of no BM with progressive enlargement of the abdomen. In addition today the pt started with N & V. She has tried enemas and medication with no relief. SHe saw her physician also without resolution. LOCATION FEMALE: No localizing symptoms. QUALITY: Pain is dull in nature, described as cramping, Different compared with previous episodes. SEVERITY: Maximum severity of symptoms moderate, Currently symptoms are moderate. TIME COURSE: Gradual onset of symptoms, Symptoms are worsening. ASSOCIATED WITH FEMALE: No associated bright red blood per rectum, No associated chills, No associated fever, No associated hematemesis, No associated hematuria, Associated with loss of appetite, No associated melena, No associated night sweats, No associated urinary tract infection signs or symptoms, No associated weight change. EXACERBATED BY: Patient's condition exacerbated by nothing. RELIEVED BY: Patient's condition relieved by nothing. ROS (21:34 MPUR) &a-1R&a+25V*p+0X*x5810V*c202B*c15G*c2P*p-0X&a-25V&a+1R Name: Jesusita Malhotra : 1950 F66 MedRec: [id number] AcctNum: [id number] Prepared: MonMar 16, 2016 11:42 by Interface Page 13 of 19 pMD [facility] EMERGENCY RECORD CONSTITUTIONAL: Historian denies chills, Historian denies fever, Historian denies malaise, Historian denies weakness. EYES: Historian denies eye redness, Historian denies eye discharge. ENT: Historian denies epistaxis, Historian denies otalgia, Historian denies rhinorrhea, Historian denies sore throat. CARDIOVASCULAR: Historian denies chest pain. RESPIRATORY: Historian denies cough, Historian denies shortness of breath. Admits to Smoking but states she has cut down. GI: Historian denies abdominal pain, Historian denies diarrhea, Historian denies nausea, Historian denies vomiting. GENITOURINARY FEMALE: Historian denies dysuria, Historian denies frequency, Historian denies hematuria, Historian denies urgency, Historian denies vaginal bleeding, Historian denies vaginal discharge. MUSCULOSKELETAL: Historian denies neck pain. SKIN: Historian denies cellulitis, Historian denies rash. NEUROLOGIC: Historian denies dizziness, Historian denies headache. ENDOCRINE: Historian denies polydipsia, Historian denies polyuria. PAST MEDICAL HISTORY (18:42 EPIE) MEDICAL HISTORY: Past medical history includes history of diabetes, endocrine disease. hypothyroidism, Past medical history includes history of hyperlipidemia, history of hypertension, pulmonary disease. chronic obstructive pulmonary disease. FEMALE SURGICAL HISTORY: Surgical history of section, Surgical history of orthopedic surgery, left wrist. PSYCHIATRIC HISTORY: Psychiatric history includes, depression. SOCIAL HISTORY: Patient denies alcohol use, Patient denies drug use, Patient currently uses tobacco, smokes cigarettes, Patient smokes 1/2 packs per day. PHYSICAL EXAM (21:31 MPUR) CONSTITUTIONAL: Vital signs reviewed, Patient alert and oriented to person, place and time. HEAD: Head exam included findings of head atraumatic, normocephalic. EYES: Pupils equally round and reactive to light, Extraocular muscles intact, Conjunctiva normal. ENT: Ear exam normal, Nose exam normal, Pharynx exam normal. NECK: Neck exam included findings of normal range of motion, Trachea midline, no jugular venous distention. &a-1R&a+25V*p+0X*c0222L*c202B*c15G*c2P*p-0X&a-25V&a+1R Name: Jesusita Malhotra : 1950 F66 MedRec: [id number] AcctNum: [id number] Prepared: MonMar 16, 2016 11:42 by Interface Page 14 of 19 [facility] EMERGENCY RECORD RESPIRATORY CHEST: Respiratory exam included findings of no respiratory distress, occas wheezing, No rales, No rhonchi. CARDIOVASCULAR: Cardiovascular exam included findings of heart rate regular rate and rhythm, Heart sounds normal, normal S1, normal S2, no murmurs. ABDOMEN FEMALE: Abdominal exam included findings of abdomen nontender but distended, Bowel sounds normal, Liver normal, Spleen normal, no mass, no pulsatile masses, no peritoneal signs. BACK: Back exam normal. UPPER EXTREMITY: Motor strength normal, Sensation intact, Radial pulse normal. LOWER EXTREMITY: Lower extremity exam included findings of inspection normal, Motor strength normal, Posterior tibial pulse normal. NEURO: Neuro exam findings include patient oriented to person, place and time, Speech normal. SKIN: Skin exam included findings of skin warm, dry. EVENTS TRANSFER: Triage to Emergency Triage. (MonMar 15, 2016 18:37 EPIE) Emergency Triage to Emergency Room -04. (18:39 EPIE) Emergency Emergency Room -04 to Holding. (22:50 ABWA) Removed from Emergency Holding. (MonMar 16, 2016 11:31 EPIE) DOCTOR NOTES TEXT: Pt with 1 week long hx of constipation, unable to pass stool or gas, with outpatient treatment failure. Also with chronic renal failure, now with N & V. 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 She had had abdominal pain as well. Have made arrangements for transfer to the main. In addition her WBC is elevated. will start on antibiotics to cover colonic infection contributing to possible toxic megacolon. (22:42 MPUR) ward from Dr. Chiu. This patient has been waiting 12 hours for ER to ER transfer for colonic obstipation, without transition point or obvious obstruction on ct. she also has renal failure, being seen by Dr. Sánchez. after dw coal yard supervisor (Dulce Puentes) and Dr. Marvin from [facility], we have changed the patient's status to direct admit hold to medical floor. she will need a consult with Dr. sánchez from Nephro and with GI when she gets to [facility]. (MonMar 16, 2016 07:51 BPIC) PROBLEM LIST No recorded problems DIAGNOSIS (22:28 MPUR) FINAL: PRIMARY: Obstipation/ colonic distension, ADDITIONAL: COPD, DEHYDRATION, Nausea and vomiting, renal failure. DISPOSITION &a-1R&a+25V*p+0X*o8260R*c202B*c15G*c2P*p-0X&a-25V&a+1R Name: Jesusita Malhotra : 1950 F66 MedRec: [id number] AcctNum: [id number] Prepared: MonMar 16, 2016 11:42 by Interface Page 15 of 19 pMD [facility] EMERGENCY RECORD PATIENT: Disposition Type: Transfer, Disposition: Transfer to [facility]. (22:28 MPUR) Disposition Type: Admit, Disposition: [place] [address] Medical Unit, Condition: Guarded. (MonMar 16, 2016 07:50 BPIC) Patient left the department. (MonMar 16, 2016 11:31 EPIE) PRESCRIPTION No recorded prescriptions IMAGING HOME MED LIST: Image captured from scanner. (MonMar 16, 2016 05:03 [facility]) ADMISSION ORDERS: Image captured from scanner. (MonMar 16, 2016 07:57 EPIE) CONSENTS: Image captured from scanner. (MonMar 16, 2016 10:07 EPIE) *MEMORANDUM OF TRANSFER: Image captured from scanner. (MonMar 16, 2016 10:08 EPIE) *SUPPLY CHARGE SHEET: Image captured from scanner. (MonMar 16, 2016 11:30 EPIE) RESULTS RADIOLOGY: CT Abdomen Pelvis WO Con Observe DT: MonMar 15, 2016 20:27, ABDPELWO NONCONTRAST ABDOMEN AND PELVIC CT 03/15/16 CLINICAL HISTORY: Constipation. FINDINGS: There is prominent dilatation of the stool filled colon with extensive dilatation spanning the level of the cecum through the mid left descending colon. There is mild to moderate distention of the rem aining left hemicolon and rectosigmoid colon. No evidence of small bowel obstruction. There is impac derik prominent fecal material with surrounding peripherally located submural air density likely repre senting air interposed between wall and stool rather than pneumatosis coli. Due to the noncontrast t echnique, the solid abdominal organs, lymph nodes and vasculature are limited in assessment. There i s scattered vascular disease. No significant consolidation at the lung bases. No disseminated free a ir or portal venous gas. There is a small hiatal hernia. Fat containing hernia of the lower left loco tral pelvic wall noted. Scattered osseous degenerative change. &a-1R&a+25V*p+0X*n8384E*c202B*c15G*c2P*p-0X&a-25V&a+1R Name: Jesusita Malhotra : 1950 F66 MedRec: [id number] AcctNum: [id number] Prepared: MonMar 16, 2016 11:42 by Interface Page 16 of 19 pMD [facility] EMERGENCY RECORD IMPRESSION: Extensive, diffuse dilatation of the stool filled colon as above. Findings favor an Ogilvies syndro me. No associated small bowel obstruction. The unopacified small bowel is grossly unremarkable. No free air. No significant ascites or portal venous gas. POS: CRISTOBAL . (23:32 MPUR) XR Abdomen 1 View/KUB Observe DT: MonMar 15, 2016 19:30, ABD1 SINGLE VIEW ABDOMEN 03/15/16 COMPARISON: Earlier same day. CLINICAL HISTORY: Constipation. FINDINGS: Redemonstration of dilated stool filled colon as was described in the radiograph from earlier today. There is presumed partially air filled gastric bubble underlying left hemidiaphragm. Imaged lung ba ses are grossly clear. 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 Correlate clinically. POS: CRISTOBAL . (23:32 MPUR) XR Chest 1 View Observe DT: MonMar 15, 2016 19:30, CXR1 FRONTAL VIEW CHEST 03/15/16 COMPARISON: 03/13/09 INDICATION: Pain. FINDINGS: The chest is grossly stable to prior exam. There is mild interstitial prominence of the lower lung z ones. The cardiac silhouette is stable in size. &a-1R&a+25V*p+0X*w9185K*c202B*c15G*c2P*p-0X&a-25V&a+1R Name: Jesusita Malhotra : 1950 F66 MedRec: [id number] AcctNum: [id number] Prepared: MonMar 16, 2016 11:42 by Interface Page 17 of 19 pMD [facility] EMERGENCY RECORD IMPRESSION: No focal consolidation. POS: CRISTOBAL . (23:32 MPUR) XR Abdomen 1 View/KUB Observe DT: MonMar 15, 2016 18:54, ABD1 SINGLE VIEW ABDOMEN 03/15/16 CLINICAL HISTORY: Constipation. FINDINGS: There is distention of the stool filled colon. There is air within bowel of the pelvis which is nond istended. Upper and left lateral aspect of abdomen not included. IMPRESSION: Distended stool filled colon. This may be on the basis of Ogilvies syndrome given the diffuse colon ic distention. There is nondistended air filled bowel of the pelvis. POS: CRISTOBAL . (23:32 MPUR) MICROBIOLOGY: Occult Blood, Stool DIAGNOSTIC: [id number] Collection DT: MonMar 15, 2016 19:39, See comment below , @ ER ROOM#: [id number] Source: Stool Spec Desc: PENDING, Fecal Occult Bld - Guaiac Negative for occult , blood . (19:55 MPUR) LABORATORY: Comprehensive Metabolic Panel Collection DT: MonMar 15, 2016 20:10, *Sodium 131 - L mmol/L, Range (136-145), Potassium 5.0 mmol/L, Range (3.5-5.1), *Chloride 97 - L mmol/L, Range (98-107), Carbon Dioxide 25 mmol/L, Range (23-31), Anion Gap 14 mmol/L, Range (10-20), *BUN (Urea Nitrogen) 38 - H mg/dL, Range (9.8-20.1), *Creatinine 2.66 - H mg/dL, Range (0.6-1.1), Estimated GFR-MDRD 18 , Reference Range for Estimated GFR: Greater than 90, mL/min/1.73 m2 NOTE: The MDRD equation has not been validated for use, with the elderly (over 70 years of age), women, patients with, serious comorbid condition or persons with extremes of body size, muscle, mass, or nutritional status. , *Glucose 179 - H mg/dL, Range (80-115), &a-1R&a+25V*p+0X*o4603N*c202B*c15G*c2P*p-0X&a-25V&a+1R Name: Jesusita Malhotra : 1950 F66 MedRec: [id number] AcctNum: [id number] Prepared: MonMar 16, 2016 11:42 by Interface Page 18 of 19 pMD [facility] EMERGENCY RECORD Calcium 8.6 mg/dL, Range (7.8-10.44), Bilirubin, Total 0.4 mg/dL, Range (0.2-1.2), Protein, Total 7.1 g/dL, Range (5.8-8.1), NOTE: Plasma values are generally 0.3 to 0.5 g/dL higher than serum values, due to the presence of fibrinogen. , Albumin 3.8 g/dL, Range (3.4-4.8), Globulin 3.3 g/dL, Range (2.4-3.5), Alb/Glob Ratio 1.2 g/dL, Range (1.2-2.2), Alkaline Phosphatase 62 U/L, Range (40-150), AST (SGOT) 17 U/L, Range (5-34), ALT (SGPT) 14 U/L, Range (0-55). (21:04 MPUR) CBC with Differential Collection DT: MonMar 15, 2016 20:10, *White Blood Cell (WBC) Count 16.1 - H thou/uL, Range (4.8-10.8), *Red Blood Cell (RBC) Count 4.09 - L mill/uL, Range (4.20-5.40), Hemoglobin 12.6 g/dL, Range (12.0-16.0), Hematocrit 38.8 %, Range (36.0-47.0), Mean Corpuscular Volume 94.8 fl, Range (81.0-99.0), Mean Corpuscular Hemoglobin 30.8 pg, Range (27.0-31.0), Mean Corpuscular HGB CONC 32.5 g/dL, Range (32.0-36.0), RBC Distribution Width 12.5 %, Range (11.5-14.5), Platelet Count 192 thou/uL, Range (130-400), Mean Platelet Volume 9.6 fL, Range (7.4-10.4), *%Neutrophils 86.9 - H %, Range (42.0-75.0), *%Lymphocytes 6.1 - L %, Range (21.0-51.0), %Monocytes 5.4 %, Range (0.0-10.0), %Eosinophils 0.5 %, Range (0.0-10.0), *%Basophils 1.1 - H %, Range (0.0-1.0), *#Neutrophils 14.0 - H thou/uL, Range (1.40-6.50), *#Lymphocytes 1.0 - L thou/uL, Range (1.20-3.40), *#Monocytes 0.9 - H thou/uL, Range (0.11-0.59), #Eosinphils 0.1 thou/uL, Range (0.0-0.7), #Basophils 0.2 thou/uL, Range (0.0-0.2). (21:04 MPUR) Lactic Acid for Sepsis Collection DT: MonMar 15, 2016 23:10, Lactic Acid - Sepsis 1.1 mmol/L, Range (0.5-2.2). (23:32 MPUR) Loza: ALVAREZ=FRITZ Howell, Yael BPSANDY=MD Isela, Nick EPIFlores=FRITZ Plascencia, Cara ORTIZ=FRITZ Cordon, Loida LKRC=FRITZ Velez, Sade MPUR=MD Apple, Jourdan &a-1R&a+25V*p+0X*l9414W*c202B*c15G*c2P*p-0X&a-25V&a+1R Name: Jesusita Malhotra : 1950 F66 MedRec: [id number] AcctNum: [id number] Prepared: MonMar 16, 2016 11:42 by Interface Page 19 of 19 pMD MTDD
--- NOTE | 2016-03-16 12:02 | ERRECORD ---
[facility] EMERGENCY RECORD HPI NAUSEA/VOMITING/DIARRHEA (21:27 MPUR) CHIEF COMPLAINT: Patient presents for evaluation of nausea, Patient presents for evaluation of vomiting, Patient presents for evaluation of constipation. HISTORIAN: History provided by patient, one week hx of no BM with progressive enlargement of the abdomen. In addition today the pt started with N & V. She has tried enemas and medication with no relief. SHe saw her physician also without resolution. LOCATION FEMALE: No localizing symptoms. QUALITY: Pain is dull in nature, described as cramping, Different compared with previous episodes. SEVERITY: Maximum severity of symptoms moderate, Currently symptoms are moderate. TIME COURSE: Gradual onset of symptoms, Symptoms are worsening. ASSOCIATED WITH FEMALE: No associated bright red blood per rectum, No associated chills, No associated fever, No associated hematemesis, No associated hematuria, Associated with loss of appetite, No associated melena, No associated night sweats, No associated urinary tract infection signs or symptoms, No associated weight change. EXACERBATED BY: Patient's condition exacerbated by nothing. RELIEVED BY: Patient's condition relieved by nothing. ROS (21:34 MPUR) CONSTITUTIONAL: Historian denies chills, Historian denies fever, Historian denies malaise, Historian denies weakness. EYES: Historian denies eye redness, Historian denies eye discharge. ENT: Historian denies epistaxis, Historian denies otalgia, Historian denies rhinorrhea, Historian denies sore throat. CARDIOVASCULAR: Historian denies chest pain. RESPIRATORY: Historian denies cough, Historian denies shortness of breath. Admits to Smoking but states she has cut down. GI: Historian denies abdominal pain, Historian denies diarrhea, Historian denies nausea, Historian denies vomiting. GENITOURINARY FEMALE: Historian denies dysuria, Historian denies frequency, Historian denies hematuria, Historian denies urgency, Historian denies vaginal bleeding, Historian denies vaginal discharge. MUSCULOSKELETAL: Historian denies neck pain. SKIN: Historian denies cellulitis, Historian denies rash. NEUROLOGIC: Historian denies dizziness, Historian denies headache. ENDOCRINE: Historian denies polydipsia, Historian denies polyuria. PAST MEDICAL HISTORY (18:42 EPIE) MEDICAL HISTORY: Past medical history includes history of &a-1R&a+25V*p+0X*b1757I*c202B*c15G*c2P*p-0X&a-25V&a+1R Name: Jesusita Malhotra : 1950 F66 MedRec: [id number] AcctNum: [id number] Prepared: MonMar 16, 2016 11:37 by Interface Page 1 of 5 pMD [facility] EMERGENCY RECORD diabetes, endocrine disease. hypothyroidism, Past medical history includes history of hyperlipidemia, history of hypertension, pulmonary disease. chronic obstructive pulmonary disease. FEMALE SURGICAL HISTORY: Surgical history of section, Surgical history of orthopedic surgery, left wrist. PSYCHIATRIC HISTORY: Psychiatric history includes, depression. SOCIAL HISTORY: Patient denies alcohol use, Patient denies drug use, Patient currently uses tobacco, smokes cigarettes, Patient smokes 1/2 packs per day. KNOWN ALLERGIES Latex, Natural Rubber CURRENT MEDICATIONS metFORMIN: TABLET : Strength - 500 mg : ORAL Patient Dose: 500 mg Oral 2 times a day. (18:38 EPIE) Unknown (18:39 EPIE) alendronate: TABLET : Strength - 70 mg : ORAL Patient Dose: 1 tab(s) Oral once a week. (MonMar 16, 2016 04:51 KASA) Coreg: TABLET : Strength - 12.5 mg : ORAL Patient Dose: 6.25 mg Oral 2 times a day. (MonMar 16, 2016 04:51 KASA) doxepin: CAPSULE : Strength - 100 mg : ORAL Patient Dose: 1 tab(s) Oral once a day (at bedtime). (MonMar 16, 2016 04:52 KASA) hydrochlorothiazide: CAPSULE : Strength - 12.5 mg : ORAL Patient Dose: 1 tab(s) Oral once a day (in the morning). (MonMar 16, 2016 04:53 KASA) levothyroxine: TABLET : Strength - 125 mcg : ORAL Patient Dose: 1 tab(s) Oral once a day (in the morning). (MonMar 16, 2016 04:53 KASA) lovastatin: TABLET : Strength - 20 mg : ORAL Patient Dose: 1 tab(s) Oral once a day (at bedtime). (MonMar 16, 2016 04:55 KASA) SMZ-TMP DS: TABLET : Strength - 800 mg-160 mg : ORAL Patient Dose: 1 tab(s) Oral 2 times a day.filled 03/01/16, qty 28 tabs. (MonMar 16, 2016 04:56 KASA) Fish Oil-Vit D3: &a-1R&a+25V*p+0X*y7349B*c202B*c15G*c2P*p-0X&a-25V&a+1R Name: Jesusita Malhotra : 1950 F66 MedRec: [id number] AcctNum: [id number] Prepared: MonMar 16, 2016 11:37 by Interface Page 2 of 5 pMD [facility] EMERGENCY RECORD CAPSULE : Strength - 300 mg-1,000 mg-1,000 unit : ORAL Patient Dose: 1 cap(s) Oral once a day.1200 mg Fish oil conc. w/2000 iu fo Vitamin D3. (MonMar 16, 2016 04:58 KASA) Vitamin D3: TABLET : Strength - 5,000 unit : ORAL Patient Dose: 1 tab(s) Oral once a day. (MonMar 16, 2016 04:59 KASA) omeprazole: CAPSULE,DELAYED RELEASE (ENTERIC COATED) : Strength - 40 mg : ORAL Patient Dose: 1 tab(s) Oral once a day. (MonMar 16, 2016 05:03 KASA) VITAL SIGNS VITAL SIGNS: BP: 132/63, Pulse: 93, Resp: 20 (Non-Labored), Temp: 98.3 (Oral), Pain: 8, O2 sat: 95 on Room Air, Time: 03/15/2016 18:35. (18:35 [facility]) BP: 140/56, Pulse: 85, Resp: 18, O2 sat: 95 on Room Air, Time: 03/15/2016 23:15. (23:15 [facility]) BP: 134/39, Pulse: 87, Resp: 20, Pain: 8, O2 sat: 96 on Room Air, Time: 03/15/2016 19:50. (19:50 [facility]) BP: 137/56, Pulse: 83, Resp: 20, O2 sat: 95 on Room Air, Time: 03/15/2016 20:15. (20:15 [facility]) BP: 125/68, Pulse: 84, Resp: 20, Pain: 8, O2 sat: 97 on Room Air, Time: 03/15/2016 21:45. (21:45 [facility]) BP: 148/56, Pulse: 84, Resp: 20, O2 sat: 97 on Room Air, Time: 03/15/2016 22:15. (22:15 [facility]) BP: 119/38, Pulse: 83, Resp: 18, O2 sat: 100 on 4L Oxygen, Time: 03/15/2016 22:50. (22:50 [facility]) BP: 109/53, Pulse: 89, Resp: 18, O2 sat: 94 on Room Air, Time: 03/15/2016 23:30. (23:30 [facility]) BP: 131/60, Pulse: 87, Resp: 18, Temp: 98.6 (Oral), O2 sat: 94 on Room Air, Time: 03/16/2016 00:30. (MonMar 16, 2016 00:30 [facility]) Pain: 8, Time: 03/15/2016 23:20. (23:20 [facility]) BP: 132/60, Pulse: 87, Resp: 18, O2 sat: 94 on Room Air, Time: 03/16/2016 01:00. (MonMar 16, 2016 01:00 [facility]) BP: 142/71, Pulse: 88, Resp: 16, O2 sat: 95 on Room Air, Time: 03/16/2016 02:00. (MonMar 16, 2016 02:00 [facility]) BP: 141/53, Pulse: 93, Resp: 18, O2 sat: 93 on Room Air, Time: 03/16/2016 06:00. (MonMar 16, 2016 06:00 [facility]) BP: 130/71, Pulse: 86, Resp: 16, O2 sat: 94 on Room Air, Time: 03/16/2016 04:00. (MonMar 16, 2016 04:00 [facility]) BP: 125/69, Pulse: 94, Resp: 18 (Non-Labored), O2 sat: 93 on Room Air, Time: 03/16/2016 08:00. ([facility], 2016 08:[facility] Pulse: 98, Resp: 20 (Non-Labored), Temp: 98.4 (Oral), Pain: 8, O2 sat: 94 on Room Air, Time: 03/16/2016 10:02. (MonMar 16, 2016 10:02 EPIE) BP: 132/58, Time: 03/16/2016 10:30. (MonMar 16, 2016 10:30 EPIE) PHYSICAL EXAM (21:31 MPUR) CONSTITUTIONAL: Vital signs reviewed, Patient alert and oriented to person, place and time. &a-1R&a+25V*p+0X*r2279I*c202B*c15G*c2P*p-0X&a-25V&a+1R Name: Jesusita Malhotra : 1950 F66 MedRec: [id number] AcctNum: [id number] Prepared: MonMar 16, 2016 11:37 by Interface Page 3 of 5 pMD [facility] EMERGENCY RECORD HEAD: Head exam included findings of head atraumatic, normocephalic. EYES: Pupils equally round and reactive to light, Extraocular muscles intact, Conjunctiva normal. ENT: Ear exam normal, Nose exam normal, Pharynx exam normal. NECK: Neck exam included findings of normal range of motion, Trachea midline, no jugular venous distention. RESPIRATORY CHEST: Respiratory exam included findings of no respiratory distress, occas wheezing, No rales, No rhonchi. CARDIOVASCULAR: Cardiovascular exam included findings of heart rate regular rate and rhythm, Heart sounds normal, normal S1, normal S2, no murmurs. ABDOMEN FEMALE: Abdominal exam included findings of abdomen nontender but distended, Bowel sounds normal, Liver normal, Spleen normal, no mass, no pulsatile masses, no peritoneal signs. BACK: Back exam normal. UPPER EXTREMITY: Motor strength normal, Sensation intact, Radial pulse normal. LOWER EXTREMITY: Lower extremity exam included findings of inspection normal, Motor strength normal, Posterior tibial pulse normal. NEURO: Neuro exam findings include patient oriented to person, place and time, Speech normal. SKIN: Skin exam included findings of skin warm, dry. MEDICATION ADMINISTRATION SUMMARY Drug Name: *DuoNeb, Dose Ordered: 3 mL, Route: Nebulize, Status: Given, Time: 09:38 03/16/2016, Drug Name: *Zosyn, Dose Ordered: 2.25 g, Route: IV Piggy Back, Status: Given, Time: 06:25 03/16/2016, Drug Name: *sodium chloride 0.9 % intravenous, Dose Ordered: 100 mL/hr, Route: IV Fluid Infusion, Status: Given, Time: 04:26 03/16/2016, Drug Name: *Zosyn, Dose Ordered: 3.375 g, Route: IV Piggy Back, Status: Given, Time: 23:33 03/15/2016, Drug Name: *DuoNeb, Dose Ordered: 3 mL, Route: Nebulize, Status: Given, Time: 22:47 03/15/2016, Drug Name: sodium chloride 0.9 % intravenous, Dose Ordered: 100 mL/hr, Route: IV Fluid Infusion, Status: Given, Time: 22:31 03/15/2016, Drug Name: *sodium chloride 0.9 % intravenous, Dose Ordered: 500 mL, Route: IV Fluid Infusion, Status: Given, Time: 22:30 03/15/2016, *Additional information available in notes, Detailed record available in Medication Service section. DOCTOR NOTES TEXT: Pt with 1 week long hx of constipation, unable to pass stool or gas, with outpatient treatment failure. Also with &a-1R&a+25V*p+0X*z6056H*c202B*c15G*c2P*p-0X&a-25V&a+1R Name: Jesusita Malhotra : 1950 F66 MedRec: [id number] AcctNum: [id number] Prepared: MonMar 16, 2016 11:37 by Interface Page 4 of 5 pMD [facility] EMERGENCY RECORD chronic renal failure, now with N & V. In addition patient is a half-way smoker with wheezing. She had had abdominal pain as well. Have made arrangements for transfer to the [facility]. In addition her WBC is elevated. will start on antibiotics to cover colonic infection contributing to possible toxic megacolon. (22:42 MPUR) ward from Dr. Chiu. This patient has been waiting 12 hours for ER to ER transfer for colonic obstipation, without transition point or obvious obstruction on ct. she also has renal failure, being seen by Dr. Rowe. 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 Marvin from [facility], we have changed the patient's status to direct admit hold to medical floor. she will need a consult with Dr. rowe from Nephro and with GI when she gets to [facility]. (MonMar 16, 2016 07:51 BPIC) PROBLEM LIST No recorded problems DIAGNOSIS (22:28 MPUR) FINAL: PRIMARY: Obstipation/ colonic distension, ADDITIONAL: COPD, DEHYDRATION, Nausea and vomiting, renal failure. PRESCRIPTION No recorded prescriptions DISPOSITION PATIENT: Disposition Type: Transfer, Disposition: Transfer to [facility]. (22:28 MPUR) Disposition Type: Admit, Disposition: [place] [address] Medical Unit, Condition: Guarded. (MonMar 16, 2016 07:50 BPIC) Patient left the department. (MonMar 16, 2016 11:31 EPIE) [place]za: BPIC=MD Isela, Nick EPIE=FRITZ Plascencia, Cara KASA=FRITZ Cordon, Loida LK=FRITZ Velez, Sade MPUR=MD Apple, Jourdan &a-1R&a+25V*p+0X*o7927N*c202B*c15G*c2P*p-0X&a-25V&a+1R Name: Marya Mc E : 1950 F66 MedRec: [id number] AcctNum: [id number] Prepared: MonMar 16, 2016 11:37 by Interface Page 5 of 5 pMD MTDD
== END 2016-03-16 11:22 | disposition short-term general hospital (02) ==
LOC: NAV ERS 18:28
DX: K63.89 Other specified diseases of intestine (principal); J44.9 Chronic obstructive pulmonary disease, unspecified; N19 Unspecified kidney failure; E11.9 Type 2 diabetes mellitus without complications; E78.5 Hyperlipidemia, unspecified; I10 Essential (primary) hypertension; F32.9 Major depressive disorder, single episode, unspecified
CPT/HCPCS: 36415; 71010; 74000; 74176; 80053; 81001; 82272; 83605; 85025; 87040; 94640; 96361; 96365; 96366; J2543; J7050; J7620